=== PATIENT | male | born 1985 | race African-American/Black ===

== ENCOUNTER 2021-06-21 22:53 | Emergency (ER) | payer SELFPAY | END 2021-06-22 02:28 | disposition left against medical advice (07) | LOC: ER 22:58 | DX: Z53.21 Procedure and treatment not carried out due to patient leaving prior to being seen by health care provider (principal) ==

== ENCOUNTER 2023-02-13 11:54 | Emergency (ER) | payer MEDICAID ==
[~2023-02-13] VITALS: Ht 185.4 cm; Wt 69.0 kg
[2023-02-13 12:00] VITALS: BP 149/91
[2023-02-13] MEDS ORDERED: KETOROLAC 60MG/2ML VIAL IM STA (12:32)
[2023-02-13] MEDS ORDERED: LIDOCAINE HCL/PF 1% 10 MG/ML 5ML VIAL INFIL ONE (13:00)
[2023-02-13] MEDS ORDERED: BACITRACIN ZINC OINT UDPKT TOP ONE (13:00)
[2023-02-13] MEDS ORDERED: TETANUS, DIPHTHERIA, PERTUSSIS VAC/PF 0.5ML (>10YR OLD) IM ONE (13:00)
[2023-02-13] MEDS ORDERED: CEPHALEXIN 250MG CAPSULE PO ONE (15:00)
[2023-02-13] MEDS ORDERED: NAPR-681 PO (15:34)
[2023-02-13] MEDS ORDERED: HYDR-4001 MT (15:34)
[2023-02-13] MEDS ORDERED: CEPH500T PO (15:34)
== END 2023-02-13 16:45 | disposition home or self-care (01) ==
LOC: ER 11:54
DX: S63.280A Dislocation of proximal interphalangeal joint of right index finger, initial encounter (principal); W31.9XXA Contact with unspecified machinery, initial encounter; Y93.89 Activity, other specified; Y92.89 Other specified places as the place of occurrence of the external cause; Y99.8 Other external cause status
CPT/HCPCS: 73140; 90471; 90715; 96372; 99284; J1885; J3490; Z7610